=== PATIENT | female | born 1990 | race Two or more races ===

== ENCOUNTER 2020-03-21 06:50 | Emergency (ER) | payer OTHER ==
[~2020-03-21] VITALS: Ht 162.6 cm; Wt 99.8 kg
[2020-03-21] MEDS ORDERED: FORTAMET500 MG (07:04)
[2020-03-21] MEDS ORDERED: BACTRIM DS TAB1 EACH PO (11:47)
== END 2020-03-21 12:16 | disposition home or self-care (01) ==
LOC: ER 06:50
DX: B34.9 Viral infection, unspecified (principal)

== ENCOUNTER 2021-12-04 07:15 | Day surgery (SDC) | payer OTHER ==
[~2021-12-04 07:15] MED LIST: BACTRIM DS TAB1 EACH PO; FORTAMET500 MG
== END 2021-12-04 14:00 | disposition home or self-care (01) ==
LOC: CIR.AMB 07:15
PROVIDERS: ATTEND Specialist
DX: O02.1 Missed abortion (principal); J45.909 Unspecified asthma, uncomplicated; Z20.822 Contact with and (suspected) exposure to COVID-19

== ENCOUNTER 2023-08-28 21:06 | Emergency (ER) | payer OTHER ==
[~2023-08-28] VITALS: Ht 162.6 cm; Wt 92.5 kg
[2023-08-28] MEDS ORDERED: GABAPENTIN 100 MG CAPSULE PO ONE (21:45)
[2023-08-28] MEDS ORDERED: ORPHENADRINE CITRATE 30 MG/ML AMPUL IM ONE (21:45)
[2023-08-28] MEDS ORDERED: KETOROLAC TROMETHAMINE 30 MG VIAL IM ONE (21:45)
== END 2023-08-28 22:32 | disposition home or self-care (01) ==
LOC: ER 21:07
DX: M54.50 Low back pain, unspecified (principal); M54.2 Cervicalgia